=== PATIENT | female | born 1975 | race Caucasian/White ===

== ENCOUNTER → 2016-09-13 | Outpatient (CLI) | payer BC ==
--- NOTE | ~2016-09-13 | CR63 ---
[facility] A Service of [facility] RADIOLOGY TEXT RESULTS PATIENT: STEPHY BUSTOS LOCATION: [facility] : 71 UNIT #: [id number] AGE: [address]: MONICA WARD APRN SEX: F ORDER DR: [id number] [facility] [place] [facility]. [place], [place] [address] [id number] O MR#: [id number] Acc #: [id number] NAME: STEPHY BUSTOS : 1975 SEX: F STUDY DATE/TIME: 09/13/2016 19:08 UNIT: [facility] ROOM: STUDY DESCRIPTION: CR Chest 2 View Ordering Physician: Gregoria Ward Aprn MEDICAL IMAGING REPORT This report is preliminary unless electronic signature is present EXAM Two views chest 09/13/2016 HISTORY Wheezing. Shortness of breath. TECHNIQUE PA and lateral radiographs of the chest. COMPARISON STUDIES None. FINDINGS No acute appearing bony abnormality. Heart, mediastinum normal in size and contour. Lungs are well-inflated. There is no evidence of acute infectious or inflammatory disease, pleural effusion or pneumothorax. No suspicious nodule. The lungs may, in fact, be slightly hyperinflated. Correlate with any known history of chronic airways disease, given the patient's history of wheezing. Correlate with any concern for asthma. Dictated by... Jose Eduardo Fox M.D. THIS IS AN ELECTRONICALLY VERIFIED REPORT Jose Eduardo Fox M.D. at 09/14/2016 9:16 AM NATAN/nino TD: 09/13/2016 21:48 JOB #: [id number] [facility] A Service [facility] RADIOLOGY TEXT RESULTS PATIENT: STEPHY BUSTOS LOCATION: [facility] : 71 UNIT #: [id number] AGE: [address]: MONICA WARD APRN SEX: F ORDER DR: MEDICAL IMAGING REPORT Page 1 of 1 COPY
== END | disposition home or self-care (01) ==
LOC: CRAD 18:31
DX: R06.2 Wheezing (principal); R06.02 Shortness of breath
CPT/HCPCS: 71020